=== PATIENT | male | born 1975 | race Caucasian/White ===

== ENCOUNTER 2018-02-06 20:03 | Emergency (ER) | payer MEDICAID ==
[~2018-02-06] VITALS: Ht 188 cm; Wt 142.3 kg
[~2018-02-06 20:03] MED LIST: NO HOME MEDICATIONS; NORCO 325 MG-51 TAB PO
[2018-02-06 21:32] VITALS: BP 164/97
== END 2018-02-06 21:32 | disposition home or self-care (01) ==
LOC: ED 20:03
DX: S83.422A Sprain of lateral collateral ligament of left knee, initial encounter (principal); W10.9XXA Fall (on) (from) unspecified stairs and steps, initial encounter; Y92.008 Other place in unspecified non-institutional (private) residence as the place of occurrence of the external cause

== ENCOUNTER 2018-11-22 15:03 | Emergency (ER) | payer MEDICARE, MEDICAID ==
[~2018-11-22] VITALS: Ht 190.5 cm; Wt 146.1 kg
[2018-11-22 16:13] LABS: EOS # 0.1 (0.04-0.40); EOS % 1.3 % (0.0-4.0); HEMATOCRIT 43.8 % (42.0-52.0); LYMPH# 1.8 (1.50-4.00); MEAN CELL VOLUME 84 fl (78-100); MEAN CORPUSCULAR HEMOGLOBIN 29 pg (27-31); MEAN CORPUSCULAR HGB CONC 34 g/dL (33-37); MEAN PLATELET VOLUME 11.6 fl (7.4-10.4); MONO # 0.5 (0.20-0.80); PLATELET COUNT 151 K/mm3 (130-400); RED BLOOD COUNT 5.24 M/mm3 (4.20-5.60); RED CELL DISTRIBUTION WIDTH 13.4 % (11.5-14.5); WHITE BLOOD COUNT 5.4 K/mm3 (4.8-10.8)
[2018-11-22 16:22] LABS: POTASSIUM 4.2 mmol/L (3.6-5.0)
[2018-11-22 16:32] LABS: ALBUMIN 4.2 g/dL (3.5-5.0); CALCIUM 9.2 mg/dL (8.4-10.2); TOTAL PROTEIN 7.3 g/dL (6.3-8.2)
[2018-11-22 16:51] LABS: URINE APPEARANCE BLOODY; URINE BILIRUBIN NEGATIVE (NEGATIVE); URINE BLOOD 250 ery/uL (NEGATIVE); URINE COLOR BROWN-YELLOW; URINE KETONE NEGATIVE (NEGATIVE); URINE LEUKOCYTE ESTERASE TRACE (NEGATIVE); URINE NITRATE NEGATIVE (NEGATIVE); URINE PROTEIN(semi-quant) 2+ mg/dL (NEGATIVE); URINE UROBILINOGEN NORMAL (NORMAL)
[2018-11-22 16:52] LABS: URINE MUCUS PRESENT (NOT PRESENT)
[2018-11-22] MEDS ORDERED: NORCO 325 MG-51 TA1 PO (18:21)
[2018-11-22] MEDS ORDERED: ZOFRAN ODT4 MG PO (18:21)
[2018-11-22] MEDS ORDERED: BACTRIM DS TAB1 EACH PO (18:21)
[2018-11-22 18:59] VITALS: BP 151/94
== END 2018-11-22 18:58 | disposition home or self-care (01) ==
LOC: ED 15:03
PROVIDERS: Nurse Practitioner
DX: N20.0 Calculus of kidney (principal); K21.9 Gastro-esophageal reflux disease without esophagitis; K25.9 Gastric ulcer, unspecified as acute or chronic, without hemorrhage or perforation; G47.30 Sleep apnea, unspecified; Z88.0 Allergy status to penicillin; Z91.018 Allergy to other foods
CPT/HCPCS: J1885; J2270; J2405; J3010; J7030; Q9967

== ENCOUNTER 2019-12-20 20:46 | Emergency (ER) | payer MEDICARE, MEDICAID ==
[~2019-12-20] VITALS: Ht 193 cm; Wt 138.6 kg
[~2019-12-20 20:46] MED LIST changes: +BACTRIM DS TAB1 EACH PO; +NORCO 325 MG-51 TA1 PO; +ZOFRAN ODT4 MG PO
[2019-12-20 22:21] VITALS: BP 143/92
== END 2019-12-20 22:21 | disposition home or self-care (01) ==
LOC: ED 20:46
DX: H60.11 Cellulitis of right external ear (principal); H61.23 Impacted cerumen, bilateral; G47.33 Obstructive sleep apnea (adult) (pediatric); K21.9 Gastro-esophageal reflux disease without esophagitis

== ENCOUNTER 2022-01-25 08:40 | Emergency (ER) | payer MEDICARE, MEDICAID ==
[~2022-01-25] VITALS: Ht 193 cm; Wt 124.1 kg
[2022-01-25] MEDS ORDERED: FLUTICASON0.05 MG/AC NS (08:50)
[2022-01-25] MEDS ORDERED: METFORMIN HYD1000 MG PO (08:50)
[2022-01-25 09:28] LABS: BASO # 0.04 K/mm3 (0.02-0.10); EOS % 1.6 % (0.0-4.0); HEMATOCRIT 45.4 % (42.0-52.0); MEAN CELL VOLUME 84 fl (78-100); MEAN CORPUSCULAR HEMOGLOBIN 30 pg (27-31); MEAN CORPUSCULAR HGB CONC 35 g/dL (33-37); MEAN PLATELET VOLUME 10.5 fl (7.4-10.4); MONO # 0.48 K/mm3 (0.20-0.80); NEU # 3.26 K/mm3 (1.40-6.50); PLATELET COUNT 172 K/mm3 (130-400); RED BLOOD COUNT 5.39 M/mm3 (4.20-5.60); WHITE BLOOD COUNT 6.2 K/mm3 (4.8-10.8)
[2022-01-25 09:36] LABS: POTASSIUM 3.8 mmol/L (3.5-5.1)
[2022-01-25 09:37] LABS: CALCIUM 9.7 mg/dL (8.3-10.5)
[2022-01-25 10:10] LABS: URINE APPEARANCE CLEAR; URINE BILIRUBIN NEGATIVE (NEGATIVE); URINE BLOOD NEGATIVE (NEGATIVE); URINE COLOR YELLOW; URINE KETONE NEGATIVE (NEGATIVE); URINE LEUKOCYTE ESTERASE NEGATIVE (NEGATIVE); URINE MUCUS PRESENT (NOT PRESENT); URINE NITRATE NEGATIVE (NEGATIVE); URINE PROTEIN(semi-quant) NEGATIVE (NEGATIVE); URINE UROBILINOGEN NORMAL (NORMAL); URINE WBC 0-1 /hpf (0-3)
[2022-01-25 15:46] VITALS: BP 144/109
== END 2022-01-25 16:00 | disposition home or self-care (01) ==
LOC: ED 08:40
PROVIDERS: Family Medicine
DX: A08.4 Viral intestinal infection, unspecified (principal); M25.572 Pain in left ankle and joints of left foot; E86.9 Volume depletion, unspecified; Z20.822 Contact with and (suspected) exposure to COVID-19; X50.0XXA Overexertion from strenuous movement or load, initial encounter
CPT/HCPCS: J1815; J3480

== ENCOUNTER 2022-04-28 12:04 | Emergency (ER) | payer MEDICARE, MEDICAID ==
[~2022-04-28] VITALS: Ht 193 cm; Wt 121.2 kg
[~2022-04-28 12:04] MED LIST changes: +FLUTICASON0.05 MG/AC NS; +METFORMIN HYD1000 MG PO
[2022-04-28 12:47] LABS: URINE APPEARANCE CLEAR; URINE BILIRUBIN NEGATIVE (NEGATIVE); URINE BLOOD NEGATIVE (NEGATIVE); URINE COLOR YELLOW; URINE KETONE 3+ (NEGATIVE); URINE LEUKOCYTE ESTERASE NEGATIVE (NEGATIVE); URINE MUCUS PRESENT (NOT PRESENT); URINE NITRATE NEGATIVE (NEGATIVE); URINE PROTEIN(semi-quant) NEGATIVE (NEGATIVE); URINE UROBILINOGEN 1 mg/dL (NORMAL); URINE WBC 0-1 /hpf (0-3)
[2022-04-28 13:27] LABS: BASO # 0.02 K/mm3 (0.02-0.10); HEMATOCRIT 44.4 % (42.0-52.0); HEMOGLOBIN 15.3 g/dL (13.5-18.0); MEAN CELL VOLUME 85 fl (78-100); MEAN CORPUSCULAR HEMOGLOBIN 29 pg (27-31); MEAN CORPUSCULAR HGB CONC 35 g/dL (33-37); MEAN PLATELET VOLUME 10.7 fl (7.4-10.4); MONO # 0.95 K/mm3 (0.20-0.80); NEU # 9.56 K/mm3 (1.40-6.50); PLATELET COUNT 169 K/mm3 (130-400); RED BLOOD COUNT 5.22 M/mm3 (4.20-5.60); RED CELL DISTRIBUTION WIDTH 12.8 % (11.5-14.5); WHITE BLOOD COUNT 11.4 K/mm3 (4.8-10.8)
[2022-04-28 13:38] LABS: ALBUMIN 4.2 g/dL (3.5-5.0)
[2022-04-28 13:39] LABS: POTASSIUM 3.9 mmol/L (3.5-5.1)
[2022-04-28 13:40] LABS: CALCIUM 9.8 mg/dL (8.3-10.5)
[2022-04-28 13:41] LABS: TOTAL PROTEIN 7.5 g/dL (6.4-8.3)
[2022-04-28 13:43] LABS: TOTAL BILIRUBIN 3.8 mg/dL (0.2-1.2)
[2022-04-28 18:45] VITALS: BP 135/103
== END 2022-04-28 18:45 | disposition short-term general hospital (02) ==
LOC: ED 12:04
PROVIDERS: Nurse Practitioner
DX: U07.1 COVID-19 (principal); K35.80 Unspecified acute appendicitis; Z28.310 Unvaccinated for COVID-19
CPT/HCPCS: J2405; J3010; J7030; Q9967

== ENCOUNTER 2024-03-06 21:12 | Emergency (ER) | payer MEDICARE, MEDICAID ==
[~2024-03-06 21:12] MED LIST changes: +Insulin Aspart (NovoLOG) SQ ONE; +NS 1,000 ML IV ONE; +Ondansetron 4 MG/2 ML VIAL IV ONE; +metFORMIN 500 MG TAB PO ONE
[2024-04-24 18:04] LABS: BASO # 0.03 K/mm3 (0.02-0.10); EOS # 0.02 K/mm3 (0.04-0.40); EOS % 0.2 % (0.0-4.0); HEMATOCRIT 45.3 % (42.0-52.0); LYMPH# 1.84 K/mm3 (1.50-4.00); MEAN CELL VOLUME 83 fl (78-100); MEAN CORPUSCULAR HEMOGLOBIN 29 pg (27-31); MEAN CORPUSCULAR HGB CONC 35 g/dL (33-37); MEAN PLATELET VOLUME 10.9 fl (7.4-10.4); MONO # 0.33 K/mm3 (0.20-0.80); NEU # 5.86 K/mm3 (1.40-6.50); PLATELET COUNT 199 K/mm3 (130-400); RED BLOOD COUNT 5.46 M/mm3 (4.20-5.60); RED CELL DISTRIBUTION WIDTH 12.8 % (11.5-14.5); WHITE BLOOD COUNT 8.1 K/mm3 (4.8-10.8)
[2024-04-24 18:05] LABS: ALBUMIN 4.3 g/dL (3.5-5.0); ALT/SGPT 21 U/L (0-55); AST-SGOT 22 U/L (5-34); CALCIUM 10.2 mg/dL (8.3-10.5); SODIUM 142 mmol/L (136-145); TOTAL BILIRUBIN 0.7 mg/dL (0.2-1.2); TOTAL PROTEIN 7.4 g/dL (6.4-8.3)
[2024-04-24 18:07] LABS: CARBON DIOXIDE 16 mmol/L (22-29); GLUCOSE 438 mg/dL (75-110); TROPONIN-I < 0.030 ng/mL (0.00-0.033)
[2024-04-24 18:25] LABS: PH-URINE 5.5 (5.0 - 8.0); URINE APPEARANCE CLEAR (CLEAR); URINE COLOR YELLOW (YELLOW); URINE PROTEIN(semi-quant) NEGATIVE (NEGATIVE)
[2024-04-24 18:26] LABS: URINE BILIRUBIN NEGATIVE (NEGATIVE); URINE GLUCOSE 3+ (NEGATIVE); URINE KETONE 1+ (NEGATIVE)
[2024-04-24 18:27] LABS: URINE BLOOD NEGATIVE (NEGATIVE); URINE LEUKOCYTE ESTERASE NEGATIVE (NEGATIVE); URINE NITRATE NEGATIVE (NEGATIVE)
[2024-04-24 18:28] LABS: URINE WBC 0-1 /hpf (0-3)
== END 2024-03-07 17:40 | disposition home or self-care (01) ==
LOC: ED 21:12
PROVIDERS: Physician Assistant
DX: I10 Essential (primary) hypertension (principal); E11.65 Type 2 diabetes mellitus with hyperglycemia
CPT/HCPCS: J1815; J1920; J2405; J2765; J7030